=== PATIENT | female | born 1940 | race Caucasian/White ===

== ENCOUNTER → 2018-08-10 | Outpatient (REF) ==
[2018-08-10 14:15] LABS: IRON,SERUM 76 ug/dL (35-150)
[2018-08-10 14:25] LABS: TOTAL IRON BINDING CAPACITY 362 ug/dL (265-497)
== END ==
LOC: ZLAB.WCH 14:04
PROVIDERS: Internal Medicine
DX: Z01.89 Encounter for other specified special examinations (principal)

== ENCOUNTER 2020-10-02 01:11 | Emergency (ER) | payer MEDICARE ==
[~2020-10-02] VITALS: Ht 162.6 cm; Wt 90.9 kg
[2020-10-02 01:27] VITALS: TEMP 98
[2020-10-02 03:07] VITALS: BP 144/70; PULSE 85
== END 2020-10-02 03:07 | disposition home or self-care (01) ==
LOC: COL.ER 01:11
DX: M25.572 Pain in left ankle and joints of left foot (principal); I10 Essential (primary) hypertension; W22.8XXA Striking against or struck by other objects, initial encounter
CPT/HCPCS: J1885

== ENCOUNTER → 2021-05-10 | Outpatient (CLI) | payer MEDICARE | LOC: ZCOL.LAB 16:25 | DX: L03.116 Cellulitis of left lower limb (principal); S81.822A Laceration with foreign body, left lower leg, initial encounter; T14.8XXA Other injury of unspecified body region, initial encounter ==

== ENCOUNTER 2021-08-02 09:45 | Outpatient (RCR) | payer MEDICARE | END 2021-08-06 | disposition home or self-care (01) | LOC: WSC | DX: M79.7 Fibromyalgia (principal) ==

== ENCOUNTER 2021-08-27 10:30 | Outpatient (RCR) | payer MEDICARE ==
[2021-08-28] MEDS ORDERED: AMOXICILLIN 8751 TAB PO (02:09)
[2021-08-28] MEDS ORDERED: NORCO 325 MG-51 TAB PO (02:12)
[2021-08-28] MEDS ORDERED: MIRAPEX 1MG PO (02:14)
[2021-08-28] MEDS ORDERED: FLEXERIL5 MG PO (02:19)
[2021-08-28] MEDS ORDERED: LEXAPRO 5MG5 MG PO (02:21)
[2021-08-28] MEDS ORDERED: NEURONTIN600 MG/TAB PO (02:22)
[2021-08-28] MEDS ORDERED: PRINIVIL10 MG PO (02:23)
[2021-08-28] MEDS ORDERED: AMBIEN 10MG10 MG PO (02:24)
[2021-08-28] MEDS ORDERED: BUSPAR10 MG PO (02:25)
[2021-08-28] MEDS ORDERED: CITRACAL-D3 ER1 EACH PO (02:27)
[2021-08-28] MEDS ORDERED: VTAMINC250TA PO (02:28)
[2021-08-28] MEDS ORDERED: PROBIOTIC PO (02:29)
== END 2021-09-05 | disposition home or self-care (01) ==
LOC: WSPT
DX: M79.7 Fibromyalgia (principal)

== ENCOUNTER 2021-08-28 00:37 | Observation (INO) | payer MEDICARE ==
[~2021-08-28] VITALS: Ht 167.6 cm; Wt 108.1 kg
[2021-08-28] VITALS (14 sets, daily range): BP systolic 108–147; BP diastolic 54–84; PULSE 67–86; TEMP 97.9–98.7
--- NOTE | 2021-08-28 01:30 | NUR ---
Pt recieved from transport.
--- NOTE | 2021-08-28 02:00 | NUR ---
Pt alert and oriented. Tx from [place] to room around 0130. Follows commands. Ambulates as a standby assist. Pt reports constant significant throbbing pain to the right elbow. Ordered hydrocodone and morphine administered per orders and pt reports some relief. Pain occurs with movement and palpation. Deng wrap is applied and maintained/clean/dry. Elbow is splinted and wrapped upon arrival. Was told in report that the pt has a significant laceration to the right elbow. Pt also has an edematous bump on the upper forehead/top of head. Bump is soft and closed. Pt denies headache/dizziness. No drainage noted from the arm. Administered ordered medications and IV antibx per orders and education was provided. Pt has been NPO since arrival. Shift assessment performed. Admission assessment and admission intake completed. COVID and infectious disease assessments completed. Med rx completed and reviewed. Allergies confirmed. VS stable on admission. NSR. Satting WNL on room air. BP stable. Afebrile. Elevated right elbow on pillow. Oriented pt to room. Educated pt to utilize call parikh when getting OOB to prevent falls. Pt up to void. Enforcing NPO. Pt does not report any questions at this time, will continue to monitor.
[2021-08-28] MEDS ORDERED: AMOXICILLIN 8751 TAB PO (02:09)
[2021-08-28] MEDS ORDERED: NORCO 325 MG-51 TAB PO (02:12)
[2021-08-28] MEDS ORDERED: MIRAPEX 1MG PO (02:14)
[2021-08-28] MEDS ORDERED: FLEXERIL5 MG PO (02:19)
[2021-08-28] MEDS ORDERED: LEXAPRO 5MG5 MG PO (02:21)
[2021-08-28] MEDS ORDERED: NEURONTIN600 MG/TAB PO (02:22)
[2021-08-28] MEDS ORDERED: PRINIVIL10 MG PO (02:23)
[2021-08-28] MEDS ORDERED: AMBIEN 10MG10 MG PO (02:24)
[2021-08-28] MEDS ORDERED: BUSPAR10 MG PO (02:25)
[2021-08-28] MEDS ORDERED: CITRACAL-D3 ER1 EACH PO (02:27)
[2021-08-28] MEDS ORDERED: VTAMINC250TA PO (02:28)
[2021-08-28] MEDS ORDERED: PROBIOTIC PO (02:29)
--- NOTE | 2021-08-28 05:51 | NUR ---
Laceration began to bleed through the иван bandage dress. Reapplied new иван bandage to splint on right elbow. Pt requested more pain medication. Administered prn morphine.
[2021-08-28 06:03] LABS: COLLECTION METHOD CLEAN CATCH
[2021-08-28 06:08] LABS: MUCOUS Present (NOT PRESENT); PH 5 (5-8); SQUAMOUS EPITHELIAL None Seen /hpf (0-10); URINE APPEARANCE Clear (CLEAR/HAZY); URINE BACTERIA None Seen /hpf (NONE SEEN); URINE BILIRUBIN Negative (NEGATIVE); URINE BLOOD Negative (NEGATIVE); URINE COLOR Yellow (YELLOW); URINE GLUCOSE Negative (NEGATIVE); URINE KETONE Trace (NEGATIVE); URINE LEUKOCYTE ESTERASE Negative (NEGATIVE); URINE NITRATE Negative (NEGATIVE); URINE PROTEIN(semi-quant) Negative (NEGATIVE); URINE RBC 0-2 /hpf (0-2); URINE UROBILINOGEN Negative (NEGATIVE)
[2021-08-28 06:50] LABS: BASO % 0.2 % (0.0-2.0); EOS # 0.1 K/mm3 (0.0-0.7); EOS % 0.6 % (0.0-4.0); GRAN # 6.5 K/mm3 (1.4-6.5); GRAN % 69.7 % (42.2-75.2); HEMATOCRIT 40.2 % (37.0-47.0); HEMOGLOBIN 12.9 g/dl (12.5-16.0); LYMPH # 1.7 K/mm3 (1.2-3.4); LYMPH % 18.5 % (20.0-51.0); MEAN CELL VOLUME 93 fl (80.0-100.0); MEAN CORPUSCULAR HEMOGLOBIN 30 pg (27-31); MEAN CORPUSCULAR HGB CONC 32 g/dl (33.0-37.0); MEAN PLATELET VOLUME 9.5 fl (7.4-10.4); MONO % 10.6 % (1.7-9.3); PLATELET COUNT 259 K/mm3 (130-400); RED BLOOD COUNT 4.34 M/mm3 (4.10-5.30); REDCELL DISTRIBUTION WIDTH-CV 12.9 % (11.5-14.5)
[2021-08-28 07:17] LABS: CALCIUM 8.7 mg/dL (8.4-10.2); CREATININE, serum 0.76 mg/dL (0.57-1.11); POTASSIUM 3.4 mmol/L (3.5-4.5)
--- NOTE | 2021-08-28 08:20 | NUR ---
PT LAYING SUPINE IN BED. PT IN A LOT OF PAIN IN HER RIGHT ARM. PT STATES THAT SHE WOULD LIKE TO GET OUT OF THE BED AND GET IN THE BEDSIDE CHAIR. ASSISTED PT TO DO SO. PT HAS SPLINT ON RIGHT ARM. PT ON ROOM AIR. PT STATES SHE WOULD LIKE TO HAVE PAIN MEDICATION, PRN MEDICATION WAS GIVEN PER EMAR. PT STATES NO OTHER NEEDS AT THIS TIME. CALL LIGHT IS WITHIN REACH.
--- NOTE | 2021-08-28 09:31 | NUR ---
Initial visit; Patient stated she had a bad night and without air conditioning in her room this morning is not going well. She asked if Gold Frame Assembler would keep an eye out for her which Gold Frame Assembler located him and brought him to Laverne's room and thanked Laverne for being so pleasant.
--- NOTE | 2021-08-28 10:48 | NUR ---
CHEIKH met with the patient, her (Zeus), niece (Marine, ph#[phone]), and nephew to discuss discharge plan. The patient lives in [place] with her . She reports independence with ADLs and does not have any DME. The patient's PCP is Dr. Rudolph Del Castillo and she receives her medications from [email or web address]. The patient does not have DPOA-HC in EMR, but she states that she does have one completed and that she designated her [id number], Mariaa Davenport. The patient states that her does not answer or use a phone, so he does not have a good contact number. Marine states that we can contact her, if we need to get ahold of the patient's . The patient plans to return home with her upon discharge. The patient has an elbow fracture and is to have surgery today. *Discharge plan: home with *
--- NOTE | 2021-08-28 11:41 | NUR ---
PT OFF FLOOR TO SURGERY
--- NOTE | 2021-08-28 18:28 | NUR ---
PT LAYING SUPINE IN BED ON 2 LIT VIA NC. SLING AND DRESSING ON RIGHT ARM IS DRY AND INTACT. PT STATES THAT HER PAIN IS "ABOUT A 2." PT STATES THAT SHE WAS ABLE TO EAT DINNER AND HAD NO N/V. PT STATES NO NEEDS AT THIS TIME. "I AM JUST GOING TO LAY HERE AND REST AND GET READY TO GO HOME TOMORROW." CALL LIGHT IS WITHIN REACH.
--- NOTE | 2021-08-29 01:30 | NUR ---
Pt alert and oriented this evening, resting currently. Follows commands. Denies pain in the right elbow at this time, pt reported that right fingers were still numb and tingly. Right elbow casted and placed in sling. Right elbow cast is clean/dry/intact. Dressing changed on LAC IV site and IV flushed. Shift assessment performed. Medications adminsitered per orders and education provided to pt and family. VS stable. Pt titrated from 2L NC to room air, satting WNL. Pt up to void x2 this evening with standby assistance, ambulating well. Incentive spirometer encourgaed when awake. Pt tolerated PO nourishment and PO medications well. Denies nausea/vomiting/dizziness. Pt currently asleep with right elbow elevated on a pillow. Ordered tylenol administered. No significant skin issues besides the right elbow laceration on admission. Pt's bump on the top on the head has decreased in size. Pt denies headache. Pt does not report any questions at this time, will continue to monitor.
[2021-08-29 04:03] VITALS: BP 95/54; PULSE 71; TEMP 98.2
--- NOTE | 2021-08-29 06:01 | NUR ---
No adverse events overnight. Right elbow remains elevated on pillow. Cast in place and sling remains on. Cast and dressing on right elbow remains clean/dry/intact. No significant edema noted. No drainage noted. Pt denies pain in elbow at this time. Continues to have adequate urine output. Tolerating PO. Ambulating well. IS encouraged. VS stable. Satting WNL on room air. Pt does not report any questions at this time, will continue to monitor.
[2021-08-29 06:42] LABS: HEMATOCRIT 39.9 % (37.0-47.0); HEMOGLOBIN 12.9 g/dl (12.5-16.0); MEAN CELL VOLUME 92 fl (80.0-100.0); MEAN CORPUSCULAR HEMOGLOBIN 30 pg (27-31); MEAN CORPUSCULAR HGB CONC 32 g/dl (33.0-37.0); MEAN PLATELET VOLUME 9.7 fl (7.4-10.4); PLATELET COUNT 276 K/mm3 (130-400); RED BLOOD COUNT 4.33 M/mm3 (4.10-5.30); REDCELL DISTRIBUTION WIDTH-CV 12.7 % (11.5-14.5)
[2021-08-29 07:03] LABS: CALCIUM 8.7 mg/dL (8.4-10.2); CREATININE, serum 0.75 mg/dL (0.57-1.11); POTASSIUM 4.6 mmol/L (3.5-4.5)
[2021-08-29 07:36] VITALS: BP 117/62; PULSE 72; TEMP 97.9
[2021-08-29 08:20] LABS: BAND 14 % (0-10); LYMPHOCYTE 4 % (20.0-51.0); NEUTROPHILS 82 % (42.0-75.2); PLATELET ESTIMATE NORMAL (NORMAL)
--- NOTE | 2021-08-29 08:20 | NUR ---
PT LAYING SUPINE IN BED. PT STATES THAT HER ARM IS "FEELING PRETTY GOOD." BREAKFAST CAME AND PT REQUEST THAT SHE SIT ON THE SIDE OF THE BED TO EAT. ASSISTED PT TO MOVE TO SIDE OF BED. PT STATES THAT NO NEEDS OR CONCERNS AT THIS TIME. "IM JUST GOING TO EAT MY BREAKFAST AND WAIT TO GO HOME." ARM SLING IS ON RIGHT ARM AND DRESSING IS DRY AND INTACT. CALL LIGHT IS WITHIN REACH.
--- NOTE | 2021-08-29 09:28 | NUR ---
Follow-up visit; Patient doing well. Laverne thanked Grinder Machine Setter for looking in on her again today and states she may get to go home today. Grinder Machine Setter told her to do what she is doing, it is obviously working and received a smile. Grinder Machine Setter offered God's blessings for Laverne.
--- NOTE | 2021-08-29 11:35 | NUR ---
PT is recommending to continue outpatient PT. SW met with the patient and her to review their recommendation. The patient confirms that she is already established at [facility] on [address] for outpatient therapy and plans to continue therapy there discharge. She states that she does water therapy there and it really helps. She had no concerns for SW. No additional needs at this time.
[2021-08-29 11:36] VITALS: BP 125/70; PULSE 80; TEMP 97.7
== END 2021-08-29 13:50 | disposition home or self-care (01) ==
LOC: SURG 00:37 → MEDICAL 01:30
PROVIDERS: Physician Assistant; Student in an Organized Health Care Education/Training Program; ADMIT Family Medicine
DX: S52.021B Displaced fracture of olecranon process without intraarticular extension of right ulna, initial encounter for open fracture type I or II (principal); G89.11 Acute pain due to trauma; I10 Essential (primary) hypertension; G47.33 Obstructive sleep apnea (adult) (pediatric); W10.8XXA Fall (on) (from) other stairs and steps, initial encounter; Y93.9 Activity, unspecified; Y92.008 Other place in unspecified non-institutional (private) residence as the place of occurrence of the external cause; G25.81 Restless legs syndrome; E87.6 Hypokalemia; F32.A Depression, unspecified; Z66 Do not resuscitate; J06.9 Acute upper respiratory infection, unspecified; F41.9 Anxiety disorder, unspecified; G47.00 Insomnia, unspecified; Z79.899 Other long term (current) drug therapy
CPT/HCPCS: C1713; G0378; J0690; J1100; J2250; J2270; J2704; J2795

== ENCOUNTER 2021-10-02 09:00 | Outpatient (RCR) | payer MEDICARE ==
[~2021-10-02 09:00] MED LIST: AMBIEN 10MG10 MG PO; AMOXICILLIN 8751 TAB PO; BUSPAR10 MG PO; CITRACAL-D3 ER1 EACH PO; FLEXERIL5 MG PO; LEXAPRO 5MG5 MG PO; MIRAPEX 1MG PO; NEURONTIN600 MG/TAB PO; NORCO 325 MG-51 TAB PO; PRINIVIL10 MG PO; PROBIOTIC PO; VTAMINC250TA PO
== END 2021-10-06 | disposition home or self-care (01) ==
LOC: WSOT
DX: M25.521 Pain in right elbow (principal)

== ENCOUNTER 2021-10-04 09:45 | Outpatient (RCR) | payer MEDICARE | END 2021-10-06 | disposition home or self-care (01) | LOC: WSPT | DX: M54.2 Cervicalgia (principal); M25.511 Pain in right shoulder ==

== ENCOUNTER 2021-10-08 08:35 | Outpatient (RCR) | payer MEDICARE | END 2021-10-09 08:39 | disposition home or self-care (01) | LOC: WSOT 08:35 | DX: M25.521 Pain in right elbow (principal) ==

== ENCOUNTER 2021-10-08 10:21 | Outpatient (RCR) | payer MEDICARE | END 2021-10-08 12:00 | disposition home or self-care (01) | LOC: WSPT 10:21 | DX: S16.1XXD Strain of muscle, fascia and tendon at neck level, subsequent encounter (principal); W19.XXXD Unspecified fall, subsequent encounter ==